=== PATIENT | female | born 1945 | race Caucasian/White ===

== ENCOUNTER 2018-01-17 02:01 | Emergency (ER) | payer OTHER ==
[~2018-01-17] VITALS: Ht 157.5 cm; Wt 73.0 kg
[2018-01-17 02:08] VITALS: BP 172/76; PULSE 89; RESP 18; TEMP 98.1; O2SAT 98
[2018-01-17] MEDS ORDERED: METO1TAB42 PO (02:27)
[2018-01-17] MEDS ORDERED: MINO50CA PO (02:27)
[2018-01-17] MEDS ORDERED: ASPI81TA81 (02:27)
[2018-01-17] MEDS ORDERED: ISOS30TA3 PO (02:27)
[2018-01-17] MEDS ORDERED: MONT10TA4 PO (02:27)
[2018-01-17] MEDS ORDERED: LOSA50TA2 PO (02:27)
[2018-01-17] MEDS ORDERED: CITRTAB11 PO (02:41)
[2018-01-17] MEDS ORDERED: MAGN400T24 (02:41)
[2018-01-17] MEDS ORDERED: IPRA0.06 EACH NARE (02:41)
[2018-01-17] MEDS ORDERED: EZET10 PO (02:41)
[2018-01-17] MEDS ORDERED: D200CAP PO (02:41)
[2018-01-17] MEDS ORDERED: ZANT150T2 PO (02:41)
[2018-01-17] MEDS ORDERED: ORPHENADRINE INJ 60 MG/2 ML AMP IM ONE (02:45)
[2018-01-17] MEDS ORDERED: ONDANSETRON HCL 4 MG/2 ML VIAL IV ONE (02:45)
[2018-01-17] MEDS ORDERED: MORPHINE SULFATE 2 MG/ML INJ IV PUSH ONE (02:45)
[2018-01-17] MEDS ORDERED: KETOROLAC TROMETHAMINE 60 MG/2 ML (IM) VIAL IM ONE (02:45)
--- NOTE | 2018-01-17 02:49 | PD ---
HPI Chief Complaint: Back/ Neck Pain or Injury Time Seen by Provider: 02:40 Travel History International Travel<30 days: No Contact w/Intl Traveler<30days: No Traveled to known affect area: No History of Present Illness HPI The patient is a 72-year-old female that complains of left low back pain for one week. She has a history of this and 2 years ago was successfully treated with pain medications which made the pain go away with shots. She states she was somewhat loopy after the shots and became constipated. She believes it was a muscle relaxant, Toradol and a narcotic pain medication. These were given IM. She denies any radiation of pain, numbness or weakness down the left leg. She denies any bladder or bowel dysfunction. [facility] Social History Alcohol Use: No Tobacco Use: No Substance Use: No Allergies-Medications (Allergen,Severity, Reaction): Coded Allergies: No Known Drug Allergies (Verified Allergy, Mild, 01/17/18) Reported Meds & Prescriptions Reported Meds & Active Scripts Active Reported D3 Super Strength (Cholecalciferol) 2,000 Unit Cap 2,000 Units PO DAILY Citracal Maximum (Calcium Citrate-Vitamin D) 315-250 Mg-Unit Tab 1 Tab PO BID Magnesium (Magnesium Oxide) 400 Mg Tablet Zantac (Ranitidine HCl) 150 Mg Tab 150 Mg PO BID Ipratropium Nasal 0.06% [place] 1 [place] EACH NARE QID Zetia (Ezetimibe) 10 Mg Tab 10 Mg PO DAILY Montelukast (Montelukast Sodium) 10 Mg Tab 10 Mg PO HS Metoprolol Succinate ER 24 HR (Metoprolol Succinate) 25 Mg Tab 25 Mg PO DAILY Isosorbide Mononitrate ER (Isosorbide Mononitrate) 30 Mg [place] 30 Mg PO DAILY Minocycline (Minocycline HCl) 50 Mg Cap 50 Mg PO BID Aspir-81 (Aspirin) 81 Mg Tabdr Losartan-Hydrochlorothiazide 50-12.5 Mg Tab 1 Tab PO DAILY Review of Systems Except as stated in HPI: all other systems reviewed are Neg Physical Exam Narrative GENERAL: Well-nourished, well-developed patient in moderate apparent distress with her low back pain. She does not want to lie down or sit and tends to stand to keep weight off of her back. SKIN: Focused skin assessment warm/dry. HEAD: Normocephalic. EYES: No scleral icterus. No injection or drainage. NECK: Supple, trachea midline. No JVD or lymphadenopathy. CARDIOVASCULAR: Regular rate and rhythm without murmurs, gallops, or rubs. RESPIRATORY: Breath sounds equal bilaterally. No accessory muscle use. GASTROINTESTINAL: Abdomen soft, non-tender, nondistended. MUSCULOSKELETAL: No cyanosis, or edema. BACK: Nontender without obvious deformity. No CVA tenderness. Straight leg raising is normal, deep tendon reflexes are +1 bilaterally both patella and Achilles and pinprick is normal. No muscle wasting is seen. Data Data Last Documented VS Vital Signs Date Time Temp Pulse Resp B/P (MAP) Pulse Ox O2 Delivery O2 Flow Rate FiO2 01/17/18 02:08 98.1 89 18 172/76 (108) 98 Orders Orders Ketorolac Inj (Toradol Inj) (01/17/18 02:45) Ondansetron Inj (Zofran Inj) (01/17/18 02:45) Orphenadrine Inj (Norflex Inj) (01/17/18 02:45) Morphine Inj (Morphine Inj) (01/17/18 02:45) MDM Medical Decision Making Medical Screen Exam Complete: Yes Emergency Medical Condition: Yes Medical Record Reviewed: Yes Differential Diagnosis Muscle strain, fasciitis, herniated nucleus pulposus-unlikely Narrative Course It is now 0330 and the patient feels "great". She is willing to go home at this time. She will be given a prescription for 600 mg ibuprofen as well as Flexeril 10 mg. She is to follow-up with her primary care physicians back in [place]. The patient has a muscle strain/fasciitis. Diagnosis Primary Impression: Myofascial muscle pain Med/Other Pt SpecificInfo: Prescription(s) given Scripts Ibuprofen (Ibuprofen) 600 Mg Tab 600 MG PO TID, #33 TAB 0 Refills Prov: Pratik Sommers MD 01/17/18 Cyclobenzaprine (Flexeril) 10 Mg Tab 10 MG PO TID for Muscle Spasm, #30 TAB 0 Refills Prov: Pratik Sommers MD 01/17/18 Disposition: 01 DISCHARGE HOME Condition: Stable Pratik Sommers MD Jan 17, 2018 02:48
[2018-01-17] MEDS ORDERED: CYCL10TA PO (03:28)
[2018-01-17] MEDS ORDERED: IBUP-232 PO (03:28)
[2018-01-17 04:03] VITALS: BP 157/72
== END 2018-01-17 04:07 | disposition home or self-care (01) ==
LOC: PHED 02:01
DX: M54.5 Low back pain (principal); Z79.899 Other long term (current) drug therapy
CPT/HCPCS: 96372; 96374; 96375; 99284; J1885; J2270; J2360; J2405